=== PATIENT | female | born 1945 | race Caucasian/White ===

== ENCOUNTER 2021-05-18 17:33 | Emergency (ER) | payer OTHER ==
[2021-05-18 18:52] LABS: BILIRUBIN NEGATIVE (NEGATIVE); BLOOD 3+ Ery/uL (NEGATIVE); CLARITY CLEAR (CLEAR); COLOR YELLOW (YELLOW); GLUCOSE (U) NORMAL (NORMAL); LEUKOCYTES TRACE Leu/uL (NEGATIVE); NITRITE NEGATIVE (NEGATIVE); PROTEIN NEGATIVE (NEGATIVE); SPECIFIC GRAVITY 1.015 (1.001-1.030); UROBILINOGEN 0.2 mg/dL (0.2-1.0)
[2021-05-18 19:01] LABS: BACTERIA TRACE
[2021-05-18 19:02] LABS: AMORPHOUS URATES CRYSTALS MODERATE
[2021-05-18 19:23] LABS: BASOPHIL 1.1 % (0-2); EOSINOPHIL 1.2 % (0-7); HGB 9.4 g/dl (12.5-16.0); LYMPHOCYTE 30.9 % (15-48); MCH 25.5 pg (25.0-31.0); MCHC 30.3 g/dL (32.0-36.0); MONOCYTE 12.3 % (0-12); MPV 8.8 fL (6.0-9.5); NEUTROPHIL 54.2 % (41-80); NRBC 0; PLT 281 K/uL (150-400); RBC 3.69 M/uL (4.20-5.40); RDW 17.2 % (11.5-14.0); WBC 7.6 K/uL (4.0-10.5)
[2021-05-18 19:40] LABS: BUN/CREAT RATIO (CALC) 24.1 RATIO; CREATININE 0.83 mg/dL (0.51-0.95); POTASSIUM 4.2 mmol/L (3.5-5.1)
[2021-05-18] MEDS ORDERED: NORCO 5-325 TA1 EACH PO (20:20)
== END 2021-05-18 20:35 | disposition home or self-care (01) ==
LOC: FER 17:33
PROVIDERS: Nurse Practitioner Family
DX: C18.9 Malignant neoplasm of colon, unspecified (principal); E11.9 Type 2 diabetes mellitus without complications; I10 Essential (primary) hypertension; Z79.84 Long term (current) use of oral hypoglycemic drugs; Z79.899 Other long term (current) drug therapy
CPT/HCPCS: 36415; 80048; 81001; 85025; J1885; J2405; J7030

== ENCOUNTER → 2021-06-06 | Day surgery (SDC) | payer OTHER ==
[~2021-06-06] VITALS: Ht 165.1 cm; Wt 81.6 kg
[~2021-06-06] MED LIST: HCTZ25 MG PO; LISINOPRIL5 MG PO; MAG-OXIDE 400M400 MG PO; METFORMIN HCL850 MG PO; NORCO 5-325 TA1 EACH PO; OS-CAL500 MG PO; POTASSIUM99 M1 PO; PRAVACHOL20 MG PO; PRILOSEC20 MG PO
== END | disposition home or self-care (01) ==
LOC: FAS 06:13
DX: D64.9 Anemia, unspecified (principal); K31.9 Disease of stomach and duodenum, unspecified; K29.50 Unspecified chronic gastritis without bleeding; K21.00 Gastro-esophageal reflux disease with esophagitis, without bleeding; C18.3 Malignant neoplasm of hepatic flexure; D12.3 Benign neoplasm of transverse colon; D12.4 Benign neoplasm of descending colon; R63.4 Abnormal weight loss; R63.0 Anorexia; M54.9 Dorsalgia, unspecified; R68.81 Early satiety; K57.30 Diverticulosis of large intestine without perforation or abscess without bleeding; I82.409 Acute embolism and thrombosis of unspecified deep veins of unspecified lower extremity; M19.90 Unspecified osteoarthritis, unspecified site; I10 Essential (primary) hypertension; E78.00 Pure hypercholesterolemia, unspecified; E11.9 Type 2 diabetes mellitus without complications; Z90.710 Acquired absence of both cervix and uterus
CPT/HCPCS: J2250; J2704; J7120

== ENCOUNTER 2021-07-23 09:23 | Inpatient (IN) | payer OTHER ==
[~2021-07-23] VITALS: Ht 165 cm; Wt 82.0 kg
[2021-07-23 11:08] LABS: BASOPHIL 0.9 % (0-2); HGB 10.8 g/dl (12.5-16.0); LYMPHOCYTE 24.7 % (15-48); MCH 26.9 pg (25.0-31.0); MCHC 30.9 g/dL (32.0-36.0); MCV 87.3 fL (78.0-100.0); MONOCYTE 10.4 % (0-12); MPV 9.3 fL (6.0-9.5); NEUTROPHIL 62.7 % (41-80); NRBC 0; PLT 243 K/uL (150-400); RBC 4.01 M/uL (4.20-5.40); RDW 19.7 % (11.5-14.0); WBC 5.8 K/uL (4.0-10.5)
[2021-07-23 11:50] LABS: ALBUMIN 3.5 g/dL (3.4-5.0); BILIRUBIN - TOTAL 0.3 mg/dL (0.2-1.0); BUN/CREAT RATIO (CALC) 22.1 RATIO; CREATININE 0.86 mg/dL (0.51-0.95); GLOBULIN (CALCULATION) 3.9 g/dL; INR 1.13 (0.9-1.2); POTASSIUM 3.5 mmol/L (3.5-5.1); PROTHROMBIN TIME 13.9 SECONDS (11.8-13.4); PTT 26.9 SECONDS (24.4-34.7); TOTAL PROTEIN 7.4 g/dL (6.4-8.2)
[2021-07-24 06:08] LABS: HCT 31.9 % (37.0-47.0); MCH 27.7 pg (25.0-31.0); MCHC 31.3 g/dL (32.0-36.0); MCV 88.4 fL (78.0-100.0); MPV 9.8 fL (6.0-9.5); RBC 3.61 M/uL (4.20-5.40)
[2021-07-24 06:13] LABS: WBC 11.5 K/uL (4.0-10.5)
[2021-07-24 06:31] LABS: ALBUMIN 2.7 g/dL (3.4-5.0); BILIRUBIN - TOTAL 0.2 mg/dL (0.2-1.0); GLOBULIN (CALCULATION) 3.3 g/dL; POTASSIUM 4.3 mmol/L (3.5-5.1)
[2021-07-24 15:05] LABS: BUN/CREAT RATIO (CALC) 24.1 RATIO; CREATININE 0.83 mg/dL (0.51-0.95); POTASSIUM 3.6 mmol/L (3.5-5.1)
[2021-07-25 06:05] LABS: HCT 28.1 % (37.0-47.0); HGB 8.6 g/dl (12.5-16.0); MCHC 30.6 g/dL (32.0-36.0); MCV 91.5 fL (78.0-100.0); RBC 3.07 M/uL (4.20-5.40); RDW 20.4 % (11.5-14.0); WBC 10.6 K/uL (4.0-10.5)
[2021-07-25 06:25] LABS: BUN/CREAT RATIO (CALC) 18.5 RATIO; CREATININE 0.81 mg/dL (0.51-0.95); POTASSIUM 3.8 mmol/L (3.5-5.1)
[2021-07-26 06:42] LABS: HGB 8.4 g/dl (12.5-16.0); MCH 27.6 pg (25.0-31.0); MCHC 31.1 g/dL (32.0-36.0); MCV 88.8 fL (78.0-100.0); RBC 3.04 M/uL (4.20-5.40); RDW 20.2 % (11.5-14.0); WBC 8.3 K/uL (4.0-10.5)
[2021-07-26 07:08] LABS: BUN/CREAT RATIO (CALC) 11.9 RATIO; CREATININE 0.67 mg/dL (0.51-0.95); POTASSIUM 2.9 mmol/L (3.5-5.1)
[2021-07-26] MEDS ORDERED: COLACE100 MG PO (08:48)
[2021-07-26] MEDS ORDERED: OXY-IR 5MG5 MG PO (08:48)
[2021-07-26] MEDS ORDERED: ACETAMINOPHEN500 M1 PO (08:48)
--- NOTE | 2021-07-26 13:21 | NUR ---
07/26/21 Ms. Marie lives alone. However, her granddaughter plans to stay with her at discharge. Ms. Marie has a rollator, 3in1, and s, chair. - A referral was made to [facility] per patient choice. Please call [facility] at [phone] if patient discharges over the weekend.
[2021-07-27 05:44] LABS: BASOPHIL 0.6 % (0-2); EOSINOPHIL 6.4 % (0-7); HCT 29.2 % (37.0-47.0); HGB 8.9 g/dl (12.5-16.0); LYMPHOCYTE 23.7 % (15-48); MCH 27.3 pg (25.0-31.0); MCHC 30.5 g/dL (32.0-36.0); MCV 89.6 fL (78.0-100.0); MPV 9.6 fL (6.0-9.5); NEUTROPHIL 57.9 % (41-80); NRBC 0; PLT 260 K/uL (150-400); RBC 3.26 M/uL (4.20-5.40); WBC 8.3 K/uL (4.0-10.5)
[2021-07-27 06:39] LABS: BUN/CREAT RATIO (CALC) 6.5 RATIO; CREATININE 1.39 mg/dL (0.51-0.95); POTASSIUM 4.1 mmol/L (3.5-5.1)
[2021-07-27] MEDS ORDERED: XARELTO10 MG PO (10:39)
[2021-07-27] MEDS ORDERED: FEOSOL325 MG PO (10:39)
[2021-07-27] MEDS ORDERED: ELIQUIS5 MG PO (13:25)
--- NOTE | 2021-07-27 14:14 | NUR ---
07/27/21 Pt reports to be unable to afford the co-pay of $462.83 for Xarelto. An escript for Eliquis was sent. Pt reports to be able to afford the co-pay of $283.52.
== END 2021-07-27 14:50 | disposition home or self-care (01) | DRG 330 ==
LOC: FMS 09:23 → FSDC 09:23 → FMS 10:45
PROVIDERS: Family Medicine; ADMIT Student in an Organized Health Care Education/Training Program
PROC: 0WQF0ZZ Repair Abdominal Wall, Open Approach (ICD-10-PCS; 2021-07-23)
PROC: 0DN80ZZ Release Small Intestine, Open Approach (ICD-10-PCS; 2021-07-23)
PROC: 0DTF0ZZ Resection of Right Large Intestine, Open Approach (ICD-10-PCS; principal; 2021-07-23 10:45)
DX: C18.4 Malignant neoplasm of transverse colon (principal); K43.0 Incisional hernia with obstruction, without gangrene; C18.3 Malignant neoplasm of hepatic flexure; C77.2 Secondary and unspecified malignant neoplasm of intra-abdominal lymph nodes; D12.5 Benign neoplasm of sigmoid colon; D50.9 Iron deficiency anemia, unspecified; E87.6 Hypokalemia; K21.00 Gastro-esophageal reflux disease with esophagitis, without bleeding; K57.30 Diverticulosis of large intestine without perforation or abscess without bleeding; K29.50 Unspecified chronic gastritis without bleeding; I10 Essential (primary) hypertension; E11.9 Type 2 diabetes mellitus without complications; E78.49 Other hyperlipidemia; G89.29 Other chronic pain; Z86.711 Personal history of pulmonary embolism; Z86.718 Personal history of other venous thrombosis and embolism; Z90.710 Acquired absence of both cervix and uterus; Z79.01 Long term (current) use of anticoagulants; Z79.84 Long term (current) use of oral hypoglycemic drugs; Z79.899 Other long term (current) drug therapy; Z90.49 Acquired absence of other specified parts of digestive tract; Z87.891 Personal history of nicotine dependence
CPT/HCPCS: 36415; 74018; 80048; 80053; 82150; 82378; 83605; 85025; 85610; 85730; 86850; 86900; 86901; 87088; 88341; 88342; 97162; 97166; 97530-GP; 97535; C9113; J0690; J1100; J1170; J1644; J1650; J1885; J2250; J2405; J2704; J2710; J2800; J3010; J7050; J7120